=== PATIENT | female | born 1950 | race African-American/Black ===

== ENCOUNTER → 2018-08-23 | Day surgery (SDC) | payer BC ==
--- NOTE | 2018-08-23 11:33 | OP ---
DATE OF OPERATION: 08/23/2018 PREOPERATIVE DIAGNOSIS: Abnormal left mammography. POSTOPERATIVE DIAGNOSIS: Abnormal left mammography. PROCEDURE: Left stereotactic needle biopsy with clip. SURGEON: Jenna Adame MD ANESTHESIA: Local. COMPLICATIONS: None. Patient was stable at the end of procedure. INDICATIONS FOR PROCEDURE: Patient presented with a routine screening mammogram that noted pleomorphic microcalcifications in the upper outer left breast. My recommendation is needle biopsy for diagnosis. The procedure was discussed with her including need for a clip. PROCEDURE IN DETAIL: Patient brought to [facility] in [place], laid prone on the Lor[place] table. Using the lateral approach, the calcifications in the upper outer left breast were identified. A sterile prep obtained. A target was chosen. There was a positive stroke margin. Using Betadine and 1% lidocaine, a 10-gauge VoloMetrixos device was used to take several cores from this area. The cores showed calcifications within them. These were handled using calcification protocol. A clip was deployed in the area. Hemostasis assured with direct pressure. Steri-Strips were used to close the incision. She tolerated the procedure well and [facility] good [facility]. JENNA ADAME M.D. [id number]
--- NOTE | 2018-08-24 14:18 | PATH ---
Surgical Pathology Report Patient Name: GURPREET GARVIN [facility]. Rec. #: [id number] /Age/Gender: 1950 (Age: 68) / F Account: [id number] Location: [facility] Taken: 08/23/2018 Received: 08/23/2018 Reported: 08/24/2018 Physicians: Jenna Martins M.D. Specimen(s) Received A: LEFT BREAST SPECIMEN WITH CALCIFICATIONS B: LEFT BREAST SPECIMEN WITHOUT CALCIFICATIONS Clinical History Nonpalpable lesion Mammographic findings: Microcalcification, suspicious Final Diagnosis A. 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 B. BREAST, LEFT, WITHOUT CALCIFICATIONS, STEREOTACTIC BIOPSY: BENIGN BREAST TISSUE. Electronically Signed Ashley Scruggs M.D. Gross Description A. Received in formalin labeled "left breast with calcifications," are 8 caceres-yellow, cylindrical portions of fibroadipose tissue ranging from 0.5-3.5 cm in length and averaging 0.3 cm in diameter. The specimens are submitted in toto in 2 cassettes. B. Received in formalin labeled "left breast without calcifications," are 6 caceres-yellow, cylindrical portions of fibroadipose tissue ranging from 1.5-2.5 cm in length and averaging 0.3 cm in diameter. The specimens are submitted in toto in 2 cassettes. Time to formalin fixation: 5 minutes Total formalin fixation time: Approximately 8 hours. /08/23/201808/23/2018
== END | disposition home or self-care (01) ==
LOC: FMAMMOTONE 08:25
PROVIDERS: ATTEND Surgery
PROC: 0HBU3ZX Excision of Left Breast, Percutaneous Approach, Diagnostic (ICD-10-PCS; principal; 2018-08-23)
DX: D24.2 Benign neoplasm of left breast (principal); N64.89 Other specified disorders of breast; R92.8 Other abnormal and inconclusive findings on diagnostic imaging of breast
CPT/HCPCS: 19081; 87899; 88305-TC; A4648